=== PATIENT | female | born 1940 | race Caucasian/White ===

== ENCOUNTER → 2023-04-02 10:45 | Outpatient (CLI) | payer OTHER, SELFPAY ==
[2023-04-02 11:53] LABS: Add Manual Diff / Slide Review NO; Basophils Absolute Auto 0 /uL (0-100); Basophils Percent Auto 0.6 % (0-2); Eosinophils Absolute Auto 100 /uL (0-450); Eosinophils Percent Auto 2.5 % (2-4); Hematocrit 31.4 % (36-46); Hemoglobin 10.8 g/dL (12.0-16.0); Lymphocytes Absolute Auto 800 /uL (1100-4500); Lymphocytes Percent Auto 17.9 % (25-40); Mean Corpuscular HGB Conc 34.3 % (30-36); Mean Corpuscular Hemoglobin 31.8 PG (26-34); Mean Corpuscular Volume 92.9 fL (80-100); Monocytes Absolute Auto 400 /uL (0-900); Monocytes Percent Auto 8.2 % (3-14); Neutrophils Absolute Auto 3300 /uL (1500-7000); Neutrophils Percent Auto 70.8 % (50-75); Platelet Count 167 X10^3/uL (150-400); Red Blood Cell Count 3.38 X10^6/uL (4.0-5.2); Red Cell Distribution Width 14.3 % (11.6-14.8); White Blood Cell Count 4.7 X10^3/uL (4.5-11.0)
[2023-04-02 12:15] LABS: Blood Urea Nitrogen 24 mg/dL (7-17); Carbon Dioxide 29 mmol/L (22-32); Chloride 101 mmol/L (98-107); HEMOLYSIS < 15 (0-50); Sodium 137 mmol/L (137-145)
[2023-04-02 12:16] LABS: BUN Creatinine Ratio 32.4 (6-22); Calcium 9.7 mg/dL (8.4-10.2); Estimated Glomerular Filt Rate > 60 mL/min (>60); Glucose 106 mg/dL (80-110)
== END ==
PROVIDERS: Referring Provider Orthopaedic Surgery Foot and Ankle Surgery; Visit Provider Orthopaedic Surgery Foot and Ankle Surgery
DX: Z01.818 Encounter for other preprocedural examination (principal); Z01.812 Encounter for preprocedural laboratory examination
CPT/HCPCS: 36415; 80048; 85025; 93005; 93010

== ENCOUNTER 2023-05-18 09:50 | Day surgery (SDC) | payer OTHER, SELFPAY ==
[2023-04-23 13:00] VITALS: BMI 34.1
[2023-05-18] VITALS (8 sets, daily range): BP systolic 108–180; BP diastolic 40–71; PULSE 68–79; RESP 11–18; TEMP 36.3–36.8; O2SAT 94–100; BMI 34.1
--- NOTE | 2023-05-18 | DI.RAD.S_ITS ---
PROCEDURE: XR FOOT LT 2V INDICATIONS: LT HINDFOOT FUSION TECHNIQUE: 2 views of the foot were acquired. COMPARISON: None. FINDINGS: Fluoroscopic guidance utilized for and ankle arthrodesis and hindfoot arthrodesis. IMPRESSION: Fluoroscopic guidance for hindfoot arthrodesis and ankle arthrodesis. Dictated by: Bernardo Diehl M.D. on 05/18/2023 at 16:25 Approved by: Bernardo Diehl M.D. on 05/18/2023 at 16:26
[2023-05-18] MEDS: LACTATED RINGERS 1,000 ML 42 ML IV (10:39)
--- NOTE | 2023-05-18 11:04 | SUR.PREOP ---
PALMAR PSORIASIS BALJIT HANDS AND FEET
--- NOTE | 2023-05-18 11:19 | PM.PREOP ---
Pre-operative Note Interval Note History & Physical reviewed/Exam performed by Physician: Yes Changes to H&P: No
[2023-05-18] MEDS: CEFAZOLIN 2 GM/100 ML PREMIX 100 ML IV (12:20)
--- NOTE | 2023-05-18 13:05 | SUR.OPER ---
Supine on padded OR bed, head on pillow, arms secured on padded arm boards at <90 degrees abduction, legs uncrossed, safety belt at thigh, tape over blanket over lower legs.
[2023-05-18] MEDS: BUPIVACAINE 0.25% (PF) 30 ML, EPINEPHrine 0.15 MG INJ (14:44)
[2023-05-18] MEDS: fentaNYL 100 MCG/2 ML INJ IV ×2 (15:18→15:30)
[2023-05-18] MEDS: OXYCODONE/ACETAMINOPHEN 5/325 TABLET 1 TAB PO (16:01)
--- NOTE | 2023-05-18 17:36 | PM.OP.1 ---
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 She is been indicated for hindfoot fusion to restore a plantigrade foot. The risks and benefits of the procedure have been discussed with the patient and given the opportunity to ask questions. The risks of surgery include but are not limited to infection, malunion, nonunion, persistence of pain, damage to nerves and blood vessels, posttraumatic arthritis, DVT, PE, cardiopulmonary complications and . The patient expressed a thorough understanding of the risks and benefits of surgery and has elected to proceed. Consent was signed. During the operation, the services of a physician surgical appliances salesperson were medically indicated and necessary to provide the exposure of the operative site for the surgical procedure and to maintain the limb in a proper position to carry out the operation safely and efficiently. Without a qualified assistant director of financial aid being present this would extended the operative procedure and made the procedure technically more difficult to perform. Surgeon: Rizwana Early Software Developer Intern: Krishna Kirby Anesthesia Type: General and Local Operative Notes Findings: Rigid pes planovalgus deformity tight Achilles rigid previous ankle fusion Closure Type: primary Specimen(s): none sent Prosthetic devices, grafts, tissues, transplants, or devices: [id number] 7.0 screws x3 [id number] 5.5 screws x2 Ogilvie 28 Great white staple 20 x 20 x 20 Nitinol 15 cc cancellous chips Estimated Blood Loss (mL): 100 Blood products transfused: none Tourniquet time (min): 90 Procedure in detail: Patient is seen in the preoperative area site of surgery marked informed consent confirmed. The patient was brought back to the operating room by the anesthesia team positioned supine on the operative table. General anesthetic was administered. The left lower extremity was prepped and draped in standard sterile fashion a formal time-out procedure was performed confirming the patient's side and site of surgery administration of appropriate preoperative antibiotic. All were in agreement. Tendo-Achilles lengthening Left leg was held up in dorsiflexion. The Achilles was taut. There was a rigid pes planovalgus contracture in order to better reduce the subtalar joint Achilles tenotomy was performed percutaneously with a 15 blade with a palpable and audible stretch. This was then sutured with 3-0 nylon suture. Talonavicular and subtalar joint fusion --due to the patient's rigid severe pes planovalgus contracture and tight lateral tissues the deformity was corrected through a medial double procedure. In this procedure a incision was made from the tip of the medial malleolus and just proximal and extending to the talonavicular joint this was taken along the course of the posterior tibialis tendon which was excised. The FDL and FHL were protected. Deep tissues were cut and retracted to expose the subtalar joint and distally the talonavicular joint. There was no concern at violating the deltoid as the patient had a pre-existing ankle fusion. The K-wire distractor was placed in the talus and calcaneus and the subtalar joint was distracted. Combination of curette and rongeur scissors and osteotomes were used to debride the posterior and medial facets of the subtalar joint and to release the posterolateral capsule to aid with correction out of severe valgus. The lamina spreaders were also used to stretch the joint and for exposure. Once joint preparation was completed of the subtalar joint the K-wires were then placed and the talonavicular joint and these were distracted and again all remaining cartilage was removed and the subchondral bone was exposed using the curette and osteotomes followed by the power rasp and then the joint prep drill. We checked that appropriate reduction could be obtained to center the heel under the tibia and correct the talonavicular uncoverage. Once this was completed the cancellous chips bone graft was placed in the talonavicular and subtalar joints. Provisional reduction was obtained and pinned then the definitive guidewires were placed across the subtalar joint and advanced up into the tibia across the previous ankle fusion for extra fixation. These were checked on multiplanar fluoroscopy and drop to be in appropriate alignment and then the final screws were placed. 3x 7.0 headless screws from the paragon set were placed across the subtalar joint. Then attention was turned to the talonavicular joint where 25.5 screws from the paragon set were advanced 1 from the medial incision and a lateral 1 percutaneously. Then a additional fixation with a 20 x 20 Nitinol staple was added from the medial approach. Final x-rays confirmed appropriate alignment and placement of hardware. Tourniquet was released hemostasis was achieved. The wounds were irrigated and closed in layers with 2-0 PDS 2-0 Vicryl 4-0 Monocryl 2-0 3-0 and 4-0 nylon. 30 cc of local anesthetic was infiltrated for postoperative pain control. Dressing was placed with Xeroform gauze Webril and a Colon cotton and posterior and stirrup splint. Patient was woken from anesthesia and taken to the recovery area in good condition there no immediate complications from this procedure all counts were correct. Complications: none Post-operative Condition: stable Disposition: PACU Plan for aftercare: Nonweightbearing or touchdown for balance 8-10 weeks. Return to clinic in 2-3 weeks for wound check. Elevate above the heart level as much as possible. Aspirin for DVT prophylaxis.
--- NOTE | 2023-06-04 16:51 | SUR.PHASEI ---
Late Note: Pt reported pain 10\10 on the pain scale at 1518 to her surgical LLE site. FLACC scale was 0. After discussion with the patient she was agreeable to 1 tablet of Percocet which was administered. Upon reassessment pt reported pain as 9/10 on the pain scale which she said was tolerable for her. FLACC remained 0
== END 2023-05-18 16:30 | disposition home or self-care (01) ==
LOC: OR 09:51 → AC 09:51
PROVIDERS: PCP Family Medicine; Referring Provider Orthopaedic Surgery Foot and Ankle Surgery; Visit Provider Orthopaedic Surgery Foot and Ankle Surgery
PROC: (CPT 27870; principal; 2023-05-18 11:15)
PROC: (CPT 27685; 2023-05-18 11:15)
DX: Q66.6 Other congenital valgus deformities of feet (principal); M24.572 Contracture, left ankle; Z98.1 Arthrodesis status; G89.18 Other acute postprocedural pain
CPT/HCPCS: 28715; 27606; 64450; 73620; 76000; J0171; J0690; J1100; J2405; J2704; J3010